=== PATIENT | female | born 1955 | race Caucasian/White ===

== ENCOUNTER 2016-04-25 21:20 | Emergency (ER) | payer BC ==
[2016-04-25 21:35] VITALS: BP 117/83; PULSE 71; RESP 18; TEMP 98.3; O2SAT 97
[2016-04-25] MEDS ORDERED: MORPHINE SULFATE 4 MG/ML INJ IM ONE (21:45)
[2016-04-25] MEDS ORDERED: PROMETHAZINE INJ 25 MG/ML VIAL IM ONE (21:45)
--- NOTE | 2016-04-25 22:05 | RADHPO ---
EXAM DATE/TIME: 04/25/2016 21:57 [facility] COMPARISON: No previous studies available for comparison. INDICATIONS : Fell. Complains of right wrist pain. MEDICAL HISTORY : Stroke. SURGICAL HISTORY : None. ENCOUNTER: Initial ACUITY: 1 day PAIN SCORE: 10/10 LOCATION: Right wrist FINDINGS: There is a comminuted fracture the distal radius nondisplaced with a vertical component extending int o the articular surface. Lateral view suggests possible dorsal displacement subluxation of the ulna. CONCLUSION: Comminuted fracture distal radius. Dorsal subluxation of the Ulna Jarocho Hawk MD on April 25, 2016 at 22:03 Board Certified Radiologist. This report was verified electronically.
--- NOTE | 2016-04-25 22:19 | RADHPO ---
EXAM DATE/TIME: 04/25/2016 22:00 [facility] COMPARISON: No previous studies available for comparison. INDICATIONS : Fall. Nausea. Dizziness. RADIATION DOSE: 56.88 CTDIvol (mGy) MEDICAL HISTORY : Cerebrovascular disease. SURGICAL HISTORY : None. ENCOUNTER: Initial ACUITY: 1 day PAIN SCALE: 0/10 LOCATION: cranial TECHNIQUE: Multiple contiguous axial images were obtained of the head. Using automated exposure control and adj ustment of the mA and/or kV according to patient size, radiation dose was kept as low as reasonably a chievable to obtain optimal diagnostic quality images. FINDINGS: CEREBRUM: The ventricles are normal for age. No evidence of midline shift, mass lesion, hemorrhage. No extra- axial fluid collections are seen. There is a small subcentimeter area of low density in the left favian sphere deep white matter adjacent to the body of the lateral ventricle centrum semiovale. This is con sistent with an area stroke without mass effect or atrophy indeterminate age POSTERIOR FOSSA: The cerebellum and brainstem are intact. The 4th ventricle is midline. The cerebellopontine angle i s unremarkable. EXTRACRANIAL: The visualized portion of the orbits is intact. SKULL: The calvaria is intact. No evidence of skull fracture. CONCLUSION: Small area of low density left hemisphere centrum semiovale deep white matter consistent with stroke indeterminate age Jarocho Hawk MD on April 25, 2016 at 22:16 Board Certified Radiologist. This report was verified electronically.
--- NOTE | 2016-04-25 22:30 | PD ---
HPI Chief Complaint: Injury Time Seen by Provider: 21:40 Travel History International Travel<30 days: No Contact w/Intl Traveler<30days: No Traveled to known affect area: No History of Present Illness HPI Patient is a 60-year-old female presenting to the emergency department evaluation of right wrist pain and a chin abrasion. She was walking her dog when it pulled her and she tripped forward onto her outstretched hand. She denies any other complaints other than the pain in the right wrist. Patient is neurologically intact. Imaging revealed a comminuted fracture of the distal radius nondisplaced with a vertical component extending into the articular surface. The lateral view suggest possible dorsal displacement subluxation of the ulna. Discussed with Dr. Song on-call orthopedic surgeon. He requested patient follow-up in the office with Dr. Saldivar on Friday. Patient is from out of town she is flying home on Friday. She was advised to call Dr. Song's office first thing tomorrow morning to see if she can schedule appointment and be evaluated tomorrow. Alternatively patient was advised to follow-up with orthopedic surgeon soon as she returns home. Patient was also advised that she can return to emergency department if unable to be evaluated by a specialist to be reevaluated. Patient and verbalized understanding of these instructions. CT scan of the brain shows a small area of low density left hemisphere centrum semioval deep white matter consistent with stroke of indeterminate age. She had hemorrhagic stroke 13 years ago. [facility] Past Medical History Neurologic: Yes (history of hemorrhagic stroke) ?: Not Social History Alcohol Use: No Tobacco Use: No Substance Use: No Allergies-Medications (Allergen,Severity, Reaction): Coded Allergies: No Known Allergies (Unverified , 04/25/16) Review of Systems Except as stated in HPI: all other systems reviewed are Neg Musculoskeletal: Positive: Myalgias, Arthralgias, Limited ROM, Edema, Pain Skin: Positive Other (skin abrasions) Physical Exam Narrative GENERAL: [Developed, well-nourished, alert female. Resting comfortably in no acute distress. SKIN: Warm and dry. Superficial skin tear to dorsal aspect of right hand as then 0.5 cm. HEAD: Atraumatic. Normocephalic. EYES: Pupils equal and round. No scleral icterus. No injection or drainage. ENT: No nasal bleeding or discharge. Mucous membranes pink and moist. NECK: Trachea midline. No JVD. CARDIOVASCULAR: Regular rate and rhythm. No murmur appreciated. RESPIRATORY: No accessory muscle use. Clear to auscultation. Breath sounds equal bilaterally. GASTROINTESTINAL: Abdomen soft, non-tender, nondistended. Hepatic and splenic margins not palpable. MUSCULOSKELETAL: No obvious deformities. No clubbing. No cyanosis. Edema noted to the dorsal aspect of the right wrist. Decreased range of motion in his right fingers. Positive Radial pulses, brisk less than 3 second capillary refill. NEUROLOGICAL: Awake and alert. No obvious cranial nerve deficits. Motor grossly within normal limits. Normal speech. PSYCHIATRIC: Appropriate mood and affect; insight and judgment normal. Data Data Last Documented VS Vital Signs Date Time Temp Pulse Resp B/P Pulse Ox O2 Delivery O2 Flow Rate FiO2 04/25/16 21:35 98.3 71 18 117/83 97 Orders Wrist, Complete ([id number]) (04/25/16 ) Ct Brain W/O Iv Contrast(Rout) (04/25/16 ) Morphine Inj (Morphine Inj) (04/25/16 21:45) Promethazine Inj (Phenergan Inj) (04/25/16 21:45) Support Splint (04/25/16 22:13) MDM Medical Decision Making Medical Screen Exam Complete: Yes Emergency Medical Condition: Yes Interpretation(s) Vital Signs Date Time Temp Pulse Resp B/P Pulse Ox O2 Delivery O2 Flow Rate FiO2 04/25/16 21:35 98.3 71 18 117/83 97 Differential Diagnosis Fracture versus sprain versus strain versus dislocation versus other Narrative Course Patient is a 60-year-old female presenting to the emergency department evaluation of right wrist pain after fall on an outstretched hand this evening while walking her dog. Patient also has a superficial abrasion to her chin. Patient is neurologically intact. Imaging revealed a comminuted fracture of the distal radius nondisplaced with a vertical component extending into the articular surface. The lateral view suggest possible dorsal displacement subluxation of the ulna. Discussed with Dr. Song on-call orthopedic surgeon. He requested patient follow-up in the office with Dr. Saldivar on Friday. With this plan was discussed with patient she mentioned that she is from out of town and she is flying home to [place] on Friday. Will be paged Dr. Simpson to possibly have patient admitted to a surgical correction tomorrow. CT scan of the brain shows a small area of low density left hemisphere centrum semioval deep white matter consistent with stroke of indeterminate age. She had hemorrhagic stroke 13 years ago. [id number]-discussed with Dr. Simpson the patient is from out of town and would not be able to be evaluated by an orthopedic surgeon until mid week next week. He stated that this would be acceptable, he actually preferred patient to be repaired in her home town so that she could follow up with that provider consistently. Patient is agreeable to plan, she actually would prefer to go home and have her wrist corrected there. Patient was encouraged to return to emergency department in the interim for any new or worsening symptoms. Patient is stable for discharge. Physician Communication Physician Communication Dr. Duncan Lan Diagnosis Primary Impression: Radius distal fracture Qualified Code: S52.501A - Closed fracture of distal end of right radius, unspecified fracture morphology, initial encounter Referrals: Orthopaedic Surgeon call for appointment On Friday when you return home Patient Instructions: General Instructions, Wrist Fracture in Adults (ED) Additional Instructions: Follow-up with your primary doctor Follow-up with orthopedic surgeon upon return home on Friday Return to emergency department for any new or worsening symptoms Keep extremity elevated Med/Other Pt SpecificInfo: Prescription(s) given Scripts Oxycodone-Acetaminophen (Percocet)5-325 mg Tab1 Tab PO Q4H PRN (PAIN) #20 TAB Ref 0 Prov:Jose Lan MD 04/25/16 Disposition: DISCHARGE HOME Condition: Stable Rossy Bruno Apr 25, 2016 22:30
[2016-04-25] MEDS ORDERED: PERC5TAB12 PO (22:44)
== END 2016-04-25 23:14 | disposition home or self-care (01) ==
LOC: PHEFT 21:20
DX: S52.591A Other fractures of lower end of right radius, initial encounter for closed fracture (principal); W18.30XA Fall on same level, unspecified, initial encounter; Y93.K1 Activity, walking an animal; Y92.9 Unspecified place or not applicable; Y99.9 Unspecified external cause status
CPT/HCPCS: 29125; 70450; 73110; 96372; 99284; J2270; J2550